=== PATIENT | female | born 1950 | race Caucasian/White ===

== ENCOUNTER → 2017-11-19 | Outpatient (CLI) | payer OTHER ==
[~2017-11-19] MED LIST: ADVIN50/60 INH; ALBU1AER9 INH; ATOR-14 PO; BACL1TAB PO; EPP3 IM; FLUT50SP14 NAE; FURO20TA PO; GADAVIST IV PRN; HYDR-3983 PO; KPP/1000 PO; MAGNESIUM PO; METO25TA3 PO; MXLUNK PO; NRN600 PO; OMEP20CA9 PO; PREG75CA PO; SNG10 PO; SYN112 PO; TOPI100T45 PO
--- NOTE | 2017-11-19 11:07 | DIAGNOSTIC IMAGING REPORT ---
ADDENDUM 1. 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 Etiology potentially relates to the prior posttraumatic change and/or interventional vertebroplasty. Electronically signed by: Mehran Levy M.D. 11/19/2017 1:50 PM Dictated Date/Time: 11/19/2017 1:49 PM ORIGINAL REPORT LUMBAR SPINE COMBINATION HISTORY: Pain. Neuropathy. M54.5 Acute bilateral low back painR15.9 Rectal [id number]. TECHNIQUE: Multiplanar multisequence MRI of the lumbar spine was performed both before and after the intravenous administration of contrast. COMPARISON: None. FINDINGS: For the purpose of the report the L5-S1 disc space will be located on axial image 28 of 30. Several mild compression deformities. Prior vertebroplasty are noted L4 T12 and T11. No evidence for an acute compression deformity. No significant sagittal postcontrast enhancement. Somewhat serpiginous nerve roots from L3 through L5 L1-L2: No significant central canal or neural foraminal narrowing. L2-L3: Minimal broad-based disc bulge. Minimal impact anterior thecal sac. Neuroforamina are patent bilaterally. L3-L4: Broad-based bulging disc with mild impact anterior thecal sac. Moderate osteophytic narrowing of the neuroforamina bilaterally. L4-L5: Broad-based bulging disc with mild impact anterior thecal sac. Mild narrowing of the neuroforamina bilaterally secondary to hypertrophic changes of posterior facets. L5-S1: No significant central canal or neural foraminal narrowing. IMPRESSION: 1. Kyphoplasty At T11, T12, and L4. 2. No acute compression deformity. 3. Somewhat serpiginous lumbar nerve roots raising the possibility of a low-grade arachnoiditis. 4. Broad-based bulging disc L3-L4 with moderate osteophytic narrowing of the neuroforamina bilaterally. 5. Broad-based bulging disc with mild impact anterior thecal sac and mild narrowing of the neuroforamina bilaterally at L4-L5. 6. No evidence for a high degree of spinal stenosis. 7. No abnormal postcontrast enhancement. The above report was generated using voice recognition software. It may contain grammatical, syntax or spelling errors. Electronically signed by: Mehran Levy M.D. 11/19/2017 11:06 AM Dictated Date/Time: 11/19/2017 10:53 AM
== END | disposition home or self-care (01) ==
LOC: C.MRI 09:24
PROVIDERS: ATTEND Physician Assistant
DX: M54.5 Low back pain (principal); M79.606 Pain in leg, unspecified; R15.9 Full incontinence of feces